=== PATIENT | male | born 1960 | race Caucasian/White ===

== ENCOUNTER → 2021-08-03 10:43 | Outpatient (BNVA) | payer SELFPAY | PROVIDERS: Family Provider Family Medicine; PCP Family Medicine; Visit Provider Surgery | DX: K40.90 Unilateral inguinal hernia, without obstruction or gangrene, not specified as recurrent (principal); Z20.822 Contact with and (suspected) exposure to COVID-19 | CPT/HCPCS: 87635 ==

== ENCOUNTER 2021-08-08 06:07 | Day surgery (SDC) | payer MEDICARE, SELFPAY ==
[2021-08-07 11:49] VITALS: BMI 25.9
[2021-08-08] VITALS (13 sets, daily range): BP systolic 139–173; BP diastolic 82–135; PULSE 66–96; RESP 9–22; TEMP 36.3–36.8; O2SAT 91–99
--- NOTE | 2021-08-08 06:30 | W.PM.OPSUD ---
Surgery/Procedure H&P Update DATE OF PROCEDURE: August 08, 2021 DATE H&P PERFORMED: 07/12/21 H&P UPDATE INFORMATION: I have reviewed H&P completed within last 30 days, I have examined patient prior to procedure and No changes to prior documentation PREOP DIAGNOSIS: Right inguinal hernia PRIMARY INDICATION FOR PROCEDURE: The same PLANNED PROCEDURE: Operation Date: 08/08/21 07:00 Proposed Procedures p Laparoscopic Inguinal Hernia Repair w/Mesh [id number] K40.90(Bilateral) - Fly Hernandez MD
--- NOTE | 2021-08-08 06:31 | ANES.PREANE2 ---
Pre-Anesthetic Assessment Pre-Anesthetic Assessment: Height/Weight: Height 1.85 m Weight 89.358 kg Temp Pulse Resp BP Pulse Ox 97.7 F 86 18 139/84 95 08/08/21 06:22 08/08/21 06:22 08/08/21 06:22 08/08/21 06:22 08/08/21 06:22 Preop Diagnosis: Right inguinal hernia Proposed Procedure: Operation Date: 08/08/21 07:00 Proposed Procedures p Laparoscopic Inguinal Hernia Repair w/Mesh 33908 K40.90(Bilateral) - Fly Hernandez MD Familial anesthetic complications: None Was Beta Chetan taken within 24 hours: N/A Was Clonidine taken within 24 hours: N/A Last intake: > 8 hrs Social: Social History: Tobacco and No alcohol Exam: Pre-Anes Outpt Exam: alert, oriented x 3, clear to auscultation bilaterally and regular rate & rhythm Airway: Cervical ROM: WNL MP: 3 Dentition: Other (no teeth) Pulmonary: Pulmonary: COPD (inhlaer use prn) CV/HEM: CV/HEM: HTN (hctz 1 year) Metabolic: Metabolic: DM Anesthetic Plan: ASA status: 2 Anesthesia: General Risk of > 500 ml blood loss (7ml/kg in children): No PFSH Anesthesia PFSH: Social History Smoking and tobacco status: current every day smoker cigarettes Packs smoked per day: 0.5 Years cigarettes smoked: 48 Data Anesthesia Cardiac Studies: No Data to Display
[2021-08-08] MEDS: sodium chloride 0.9% 1,000 ML 30 ML IV (06:48)
[2021-08-08] MEDS: acetaminophen 1,000 MG/100 ML PIGGYBACK 400 MG IV (06:48)
[2021-08-08 06:49] LABS: Glucose Point of Care 123 mg/dL (70-110)
--- NOTE | 2021-08-08 08:37 | PM.OP ---
Operative Report Date of procedure: August 08, 2021 Pre-op Diagnosis: Right inguinal hernia Post-op diagnosis: same Post-op Findings: Large Direct hernia defect and a small indirect component Procedure Done: Laparoscopic right inguinal hernia repair with mesh placement Implants: 3D polypropylene mesh Surgeon: Fly Hernandez Superintendent [employer]: Surgical techs Alysha Berg and surgical elastic knitter student [employer] student Gemma Campbell and Negra Kearney Anesthesia: General (CIARA Fritz) Estimated blood loss (mL): 5 Condition: stable Disposition: same day Brief History: Symptomatic right groin hernia Procedure: Transabdominal preperitoneal (TOI) approach. Patient was identified in the holding area ,patient was taken to the operating room where he was placed in supine position, with both arms were tucked, antibiotic was given with induction, endotracheal tube was placed per anesthesia, Alfaro catheter was inserted by the circulating nurse and revealed clear urine, prep and drape of the abdomen was done under the usual sterile technique. Time-out was done verifying the patient's name/date of /planned procedure destination after the procedure, all were in agreement. SCDs confirmed to be functioning, preoperative antibiotics administered per protocol, and beta varghese protocol was confirmed. A vertical skin incision of 1.2 cm was made with 11 blade knife through the supra umbilicus , incision was carried down to the subcutaneous tissue and deepened to identify the anterior fascia, two stay sutures were applied to the fascia, and safe entrance to the abdominal cavity was achieved, a Barrow trocar technique safe entry to the abdominal cavity was achieved verified by using 10 mm zero degree laparoscopy, switched to a 30 degrees scope,low flow followed by a higher flow of CO2 gas up to 15 mmHg. There was no evidence of injury to intra-abdominal structures from the port entry, attention was deviated to both groins, there was a large indirect hernia defect with herniation of peritoneum and preperitoneal fat was noted on the right side, two 5 mm ports were placed on the right and left lateral aspect of the abdomen slightly above the level of the umbilicus, under direct visualization, anesthesia 2% lidocaine local was injected at all trocar sites prior to incisions. The peritoneum above the level of the iliopubic tract was incised to the left of the midline and dissection was performed to create a preperitoneal space medial to lateral aspect up to anterior superior iliac spine on the right side.Dissection was continued onto the medial aspect and the right spermatic was identified, there was evidence of direct inguinal hernia .the sac was dissected. As it applied medial to the right inferior epigastric vessels/ dissection was performed to clear the space lateral to the spermatic cord and dorsomedial to it, the hernia sac was reduced and retracted far back,so there wasn't evidence of a small indirect inguinal hernia that was dissected.. Then a large 3-D mesh was rolled and placed into the abdominal cavity through the Barrow port, after the mesh was introduced it was positioned to lie in the myopectineal orifice and the mesh was unrolled and this covered the entire my myope pectineal orifice. Intra-abdominal pressure was dropped to 12 mmHg to help placement of the mesh good position On the lateral aspect of the mesh extended up to the anterior superior iliac spine on the medial aspect the mesh crossed the midline onto the left side, then using absorbable tacks, placed above the iliopubic tract onto the rectus abdominis muscle on the medial aspect and also to the lateral abdominal wall superomedial to the sacroiliac spine, then the mesh was also anchored to the pubis and the Lorenzo's ligament inferiorly. The peritoneal leaflets were then brought together to cover the mesh and isolated from the other viscera, extra tacks were used to secure the peritoneum in good position. Final look demonstrated good hemostasis and the mesh in good position A total of 20 mL Exparel 40 ml Normal saline 20 ml bupivacaine 0.25% were injected at the remaining of the tacks site and trocar sites as well Final look demonstrated good hemostasis,no injuries detected.Then the fascia on the supra umbilical fascial defect was closed using #1 PDS sutures under direct visualization using fascial closure device Alirio Solis.All ports were removed,then the abdomen was desufflated. All skin incisions were closed with 4-0 Monocryl subcuticular suture and Dermabond was applied. The patient tolerated the procedure well, Alfaro catheter was taken out ,got extubated and was taken to the recovery area in stable condition All counts of instruments, needles and sponges were completed I was present for the whole entire procedure
[2021-08-08] MEDS: ondansetron 2 mg/ML SDV 2 mL 4 MG IVP ×2 (08:59→09:04)
[2021-08-08] MEDS: hyDRALAzine 20 mg/mL INJ 1 mL 5 MG IVP ×2 (09:16→09:32)
[2021-08-08] MEDS: HYDROcodone-acetaminophen 5-325 mg Tablet 1 TAB PO (09:57)
--- NOTE | 2021-08-08 10:07 | SUR.PHASEII ---
EDUCATED PATIENT TO TAKE OTC BENADRYL WITH HYDROCODONE TO HELP WITH ITCHING PER DR. FISHER REQUEST. PATIENT DEMONSTRATED UNDERSTANDING.
== END 2021-08-08 10:55 | disposition home or self-care (01) ==
PROVIDERS: PCP Orthopaedic Surgery Adult Reconstructive Orthopaedic Surgery; Visit Provider Surgery
PROC: (CPT 49650; principal; 2021-08-08 07:00)
DX: K40.90 Unilateral inguinal hernia, without obstruction or gangrene, not specified as recurrent (principal); J44.9 Chronic obstructive pulmonary disease, unspecified; I10 Essential (primary) hypertension; E11.9 Type 2 diabetes mellitus without complications; F17.210 Nicotine dependence, cigarettes, uncomplicated; Z79.82 Long term (current) use of aspirin
CPT/HCPCS: 49650; 36416; 82962; C1781; C9290; J0330; J0360; J0690; J1100; J2405; J2704; J2710; J3010; J3490; J7030